=== PATIENT | female | born 1980 | race Caucasian/White ===

== ENCOUNTER 2021-06-29 17:19 | Emergency (ER) | payer SELFPAY ==
[2021-06-29 19:05] LABS: HEMOGLOBIN 13.9 gm/dl (12.3-15.3); RED BLOOD COUNT 4.89 M/UL (4.00-5.10); WHITE BLOOD COUNT 12.1 K/UL (4.5-11.0)
[2021-06-29 19:29] LABS: BUN/CREATININE RATIO 9 (0-10)
== END 2021-06-30 00:15 | disposition home or self-care (01) ==
LOC: ER1 17:19
PROVIDERS: Physician Assistant Medical
DX: R53.1 Weakness (principal); R33.9 Retention of urine, unspecified; Z20.822 Contact with and (suspected) exposure to COVID-19; Z90.49 Acquired absence of other specified parts of digestive tract
CPT/HCPCS: 51701; 70450; 80053; 81001; 82550; 82553; 83605; 83690; 83874; 84439; 84443; 84484; 85025; 87040; 93005; 99285; U0002